=== PATIENT | female | born 2000 | race African-American/Black ===

== ENCOUNTER 2020-06-01 14:00 | Emergency (ER) | payer SELFPAY ==
[2020-06-01] MEDS ORDERED: ACETAMINOPHEN 325 MG TABLET PO ONE (14:22)
--- NOTE | 2020-06-01 14:24 | ER Document Report ---
ED Medical Screen (RME) - General Chief Complaint: Abdominal Pain Stated Complaint: ABDOMINAL PAIN Time Seen by Provider: 06/01/20 14:19 Mode of Arrival: Ambulatory Information source: Patient Notes: HPI; 20-year-old female presents to the emergency room complaining of intermittent worsening abdominal pain for the past month. States is gotten worse over the past week. Now radiates to her left flank area. Complains of dysuria, abdominal pressure, constantly feeling the need to urinate. States is gotten worse over the past week. Has tried [id number] Azo without relief. Denies any fevers, no nausea, no vomiting, no diarrhea. No COVID-19 exposure PE: Alert and oriented x3. Lungs: Clear to auscultation without rales, rhonchi, wheezes. Heart: Regular rate and rhythm without murmurs, rubs, gallops. Positive left CVA tenderness. I have greeted and performed a rapid initial assessment of this patient. A comprehensive ED assessment and evaluation of the patient, analysis of test results and completion of the medical decision making process will be conducted by additional ED providers. I have specifically instructed the patient or family members with the patient to immediately return to any nursing staff should anything change in the patient's condition or with their chief complaint. TRAVEL OUTSIDE OF THE [place] IN LAST 30 DAYS: No Physical Exam - Vital signs Vitals: Temp Pulse Resp BP Pulse Ox 98.0 F 72 16 119/77 100 06/01/20 14:06 06/01/20 14:06 06/01/20 14:06 06/01/20 14:06 06/01/20 14:06 Course - Vital Signs Vital signs: Temp Pulse Resp BP Pulse Ox 98.0 F 72 16 119/77 100 06/01/20 14:06 06/01/20 14:06 06/01/20 14:06 06/01/20 14:06 06/01/20 14:06
[2020-06-01 15:19] LABS: ABSOLUTE EOSINOPHILS # (AUTO) 0.1 10^3/uL (0.0-0.6); ABSOLUTE LYMPHOCYTES (AUTO) 1.3 10^3/uL (0.5-4.7); ABSOLUTE MONOCYTES (AUTO) 0.4 10^3/uL (0.1-1.4); ABSOLUTE NEUT (AUTO) 3.3 10^3/uL (1.7-8.2); BASOPHILS % (AUTO) 0.4 % (0-2); EOSINOPHILS % (AUTO) 1.7 % (0-6); HEMATOCRIT 38.9 % (36.0-47.0); HEMOGLOBIN 13.5 g/dL (12.0-15.5); LYMPHOCYTES % (AUTO) 26.1 % (13-45); MEAN CORPUSCULAR HEMOGLOBIN 30.8 pg (27.0-33.4); MEAN CORPUSCULAR HGB CONC 34.7 g/dL (32.0-36.0); MEAN CORPUSCULAR VOLUME 89 fl (80-97); MONOCYTES % (AUTO) 7.5 % (3-13); PLATELET COUNT 207 10^3/uL (150-450); RED BLOOD COUNT 4.39 10^6/uL (3.72-5.28); RED CELL DISTRIBUTION WIDTH 13.4 % (11.5-14.0); SEGMENTED NEUTROPHILS % (AUTO) 64.3 % (42-78); TOTAL CELLS COUNTED % (AUTO) 100 %; WHITE BLOOD COUNT 5.2 10^3/uL (4.0-10.5)
[2020-06-01 15:20] LABS: APPEARANCE,URINE SLIGHTLY-CLOUDY; BILIRUBIN,URINE NEGATIVE (NEGATIVE); COLOR,URINE YELLOW; GLUCOSE, URINE NEGATIVE (NEGATIVE); KETONES,URINE NEGATIVE (NEGATIVE); LEUKOCYTE ESTERASE,URINE SMALL (NEGATIVE); NITRITE,URINE NEGATIVE (NEGATIVE); PROTEIN,URINE NEGATIVE (NEGATIVE); URINE SPECIFIC GRAVITY 1.024; UROBILINOGEN,URINE NEGATIVE mg/dL (<2.0)
[2020-06-01 15:29] LABS: ALBUMIN 4.3 g/dL (3.5-5.0); ALKALINE PHOSPHATASE 82 U/L (38-126); ANION GAP 9 (5-19); ASPARTATE AMINO TRANSFERASE 26 U/L (14-36); BILIRUBIN,DIRECT 0.3 mg/dL (0.0-0.4); BILIRUBIN,TOTAL 0.7 mg/dL (0.2-1.3); BLOOD UREA NITROGEN 14 mg/dL (7-20); CALCIUM 9.9 mg/dL (8.4-10.2); CARBON DIOXIDE 27 mmol/L (22-30); CHLORIDE 104 mmol/L (98-107); GLUCOSE 86 mg/dL (75-110); POTASSIUM 4.2 mmol/L (3.6-5.0); TOTAL PROTEIN 8.1 g/dL (6.3-8.2)
--- NOTE | 2020-06-01 16:53 | ER Document Report ---
ED General <CHULA SYED - Last Filed: 06/01/20 18:14> - General Mode of Arrival: Ambulatory Information source: Patient TRAVEL OUTSIDE OF THE [place] IN LAST 30 DAYS: No - Related Data Home Medications: Keppra <JACKIE BOLANOS - Last Filed: 06/01/20 18:41> - General Chief Complaint: Urinary Problem Stated Complaint: ABDOMINAL PAIN Time Seen by Provider: 06/01/20 14:19 Notes: Patient is a 20-year-old -Turkmen female with 1 month of intermittent abdominal discomfort. Primarily patient is complaining of bladder spasms and frequency of urination. She does not have any dysuria. No fevers or shaking chills. No nausea or vomiting. (JACKIE BOLANOS) - Related Data Allergies/Adverse Reactions: pineapple Allergy (Verified 06/01/20 14:24) Past Medical History - General Information source: Patient Last Menstrual Period: 19 Sep - Social History Smoking Status: Never Smoker Chew tobacco use (# tins/day): No Frequency of alcohol use: None Family History: None <JACKIE BOLANOS - Last Filed: 06/01/20 18:41> Review of Systems <JACKIE BOLANOS - Last Filed: 06/01/20 18:41> - Review of Systems Notes: Constitutional: No fevers. No chills. EENT: No eye redness. No eye pain. No ear pain. No sore throat. Cardiovascular: No chest pain. No palpitations. Respiratory: No cough. No shortness of breath. No respiratory distress. Gastrointestinal: +abdominal pain. No nausea, vomiting, or diarrhea. Genitourinary: Positive urgency and frequency of urination. Musculoskeletal: Atraumatic. No swelling. No deformities. Skin: No rash or lesions. Lymphatic: No swollen lymph nodes. Neurologic: No headache. No syncope. Psychiatric: No suicidal or homicidal ideation. (JACKIE BOLANOS) Physical Exam <JACKIE BOLANOS - Last Filed: 06/01/20 18:41> - Vital signs Vitals: Temp Pulse Resp BP Pulse Ox 98.0 F 72 16 119/77 100 06/01/20 14:06 06/01/20 14:06 06/01/20 14:06 06/01/20 14:06 06/01/20 14:06 - Notes Notes: General: Well-developed, well-nourished. In no acute distress. Non-toxic appearing. Cardiac: Well-perfused. Regular rate and rhythm. No murmurs, rubs, or gallops. Pulmonary: No respiratory distress. No cyanosis. Bilateral lung fiels are clear to auscultation. Abdominal: Non-distended. Non-rigid. Bowels sounds are present in all four quadrants. No guarding or rebound. No CVA tenderness HEENT: Head is atraumatic. Conjunctivae not reddened. No tearing. PERRL. EOMI. Orbits atraumatic. No periorbital swelling or erythema. Oropharynx is without erythema, swelling, or exudates. Neck: Supple. No adenopathy. No meningismus. Dermatologic: Warm with good turgor. No rash. Atraumatic. Chest: Atraumatic. No chest wall tenderness to palpation. Musculoskeletal: Moves all extremities well. No range of motion deficits. no muscular or joint tenderness. No paraspinal muscle tenderness. no midline spinal tenderness or step-off. Genitourinary: Examination deferred Neurologic: No gross neurologic deficits. Psychiatric: Normal mood. (JACKIE BOLANOS) Course - Laboratory Result Diagrams: 06/01/20 14:30 06/01/20 14:30 <CHULA SYED - Last Filed: 06/01/20 18:14> - Laboratory Result Diagrams: 06/01/20 14:30 06/01/20 14:30 <JACKIE BOLANOS - Last Filed: 06/01/20 18:41> - Re-evaluation Re-evalutation: 06/01/20 18:14 Pelvic exam done with CHARLES Dimas at bedside. No cervical motion tenderness or adnexal tenderness noted. Moderate amount of gonsalez/white discharge noted. Discussed these findings with EDMAR Hernández. (CHULA SYED) 06/01/20 16:53 Blood work and urine really look unremarkable. Given the patient's long urinary symptoms, will recommend pelvic examination for possible STD. 06/01/20 18:35 Patient has some epithelials and bacteria in the wet mount. Will treat for bacterial vaginosis. Patient otherwise has urinary symptoms without an obvious UTI. She agrees to let us go ahead and treat her for gonorrhea and chlamydia empirically. I will start her additionally on Flagyl twice a day for a week to cover for BV. We will give her [employer]OR follow-up (JACKIE BOLANOS) - Vital Signs Vital signs: Temp Pulse Resp BP Pulse Ox 98.0 F 72 16 119/77 100 06/01/20 14:06 06/01/20 14:06 06/01/20 14:06 06/01/20 14:06 06/01/20 14:06 - Laboratory Laboratory results interpreted by me: 06/01/20 14:30 Ur Leukocyte Esterase SMALL H Discharge <CHULA SYED - Last Filed: 06/01/20 18:14> <JACKIE BOLANOS - Last Filed: 06/01/20 18:41> - Discharge Clinical Impression: Urinary frequency, Vaginal discharge, Bacterial vaginosis Abdominal pain Qualifiers: Abdominal location: unspecified location Qualified Code(s): R10.9 - Unspecified abdominal pain Condition: Good Disposition: HOME, SELF-CARE Instructions: Abdominal Pain ([facility]) Prescriptions: Metronidazole [Flagyl 500 mg Tablet] 500 mg PO BID #14 tablet Referrals: JEN BUTCHER MD [ACTIVE STAFF] - Follow up as needed
[2020-06-01 18:25] LABS: BACTERIA (WET MOUNT) 3+ BACTERIA SEEN; EPITHELIALS (WET MOUNT) 4+ EPITHELIALS SEEN; RBCS (WET MOUNT) NO RBCS SEEN; T.VAGINALIS (WET MOUNT) NO TRICHOMONAS SEEN; WBCS (WET MOUNT) FEW WBCS SEEN; YEAST (WET MOUNT) NO YEAST SEEN
[2020-06-01] MEDS ORDERED: CEFTRIAXONE INJ 250 MG VIAL IM ONE (18:34)
[2020-06-01] MEDS ORDERED: LIDOCAINE 1% INJ-PF (10 MG/ML) 30 ML SDV INJ ONE (18:34)
[2020-06-01] MEDS ORDERED: AZITHROMYCIN 250 MG TABLET PO ONE (18:34)
[2020-06-01 19:43] VITALS: BP 110/73
[2020-06-01 20:01] LABS: CHLAM PCR NOT DETECTED (NOT DETECT)
== END 2020-06-01 19:44 | disposition home or self-care (01) ==
LOC: ER 14:00
DX: N76.0 Acute vaginitis (principal); B96.89 Other specified bacterial agents as the cause of diseases classified elsewhere; R35.0 Frequency of micturition; R10.9 Unspecified abdominal pain
CPT/HCPCS: 36415; 80053; 81001; 84703; 85025; 87210; 87491; 87591; 99283

== ENCOUNTER 2020-06-19 16:02 | Emergency (ER) | payer SELFPAY ==
--- NOTE | 2020-06-19 18:58 | ER Document Report ---
ED Medical Screen (RME) - General Chief Complaint: Vaginal Pain Stated Complaint: VAGINAL CRAMPING Time Seen by Provider: 06/19/20 18:35 TRAVEL OUTSIDE OF THE [place] IN LAST 30 DAYS: No - HPI Notes: 06/19/20 18:43 20 year old female presents today with complaints of vaginal bleeding that started today. Patient states she took a test today and it was positive. Reports her last menstrual cycle was 04/28/2020. Patient was seen in the emergency room at the end of May, her urine at that time was negative. Patient has been sexually active without protection. Patient states she is unsure why she is vaginally bleeding, small amount, has not used any pads or tampons. Denies any fevers or chills. Denies any trauma. Denies any dysuria Unable to do pelvic exam in triage. Patient will be seen by a provider in the main emergency room I have greeted and performed a rapid initial assessment of this patient. A comprehensive ED assessment and evaluation of the patient, analysis of test results and completion of the medical decision making process will be conducted by additional ED providers. PHYSICAL EXAMINATION: GENERAL: Well-appearing, well-nourished and in no acute distress. CV: s1, s2 regular LUNGS: No respiratory distress 06/19/20 18:58 - Related Data Allergies/Adverse Reactions: pineapple Allergy (Verified 06/01/20 14:24) Past Medical History - Social History Frequency of alcohol use: None Drug Abuse: None Physical Exam - Vital signs Vitals: Temp Pulse Resp BP Pulse Ox 97.7 F 88 18 130/76 H 100 06/19/20 16:15 06/19/20 16:15 06/19/20 16:15 06/19/20 16:15 06/19/20 16:15 Course - Vital Signs Vital signs: Temp Pulse Resp BP Pulse Ox 97.7 F 88 18 130/76 H 100 06/19/20 16:15 06/19/20 16:15 06/19/20 16:15 06/19/20 16:15 06/19/20 16:15
[2020-06-19 19:33] LABS: AMORPHOUS SEDIMENT,URINE 1+ /HPF; APPEARANCE,URINE TURBID; BILIRUBIN,URINE NEGATIVE (NEGATIVE); COLOR,URINE YELLOW; GLUCOSE, URINE NEGATIVE (NEGATIVE); KETONES,URINE NEGATIVE (NEGATIVE); LEUKOCYTE ESTERASE,URINE TRACE (NEGATIVE); NITRITE,URINE POSITIVE (NEGATIVE); PROTEIN,URINE NEGATIVE (NEGATIVE); URINE SPECIFIC GRAVITY 1.023; UROBILINOGEN,URINE NEGATIVE mg/dL (<2.0)
[2020-06-19 19:37] LABS: ALBUMIN 4.7 g/dL (3.5-5.0); ALKALINE PHOSPHATASE 87 U/L (38-126); ANION GAP 10 (5-19); ASPARTATE AMINO TRANSFERASE 24 U/L (14-36); BILIRUBIN,TOTAL 0.5 mg/dL (0.2-1.3); BLOOD UREA NITROGEN 12 mg/dL (7-20); CALCIUM 10.2 mg/dL (8.4-10.2); CARBON DIOXIDE 24 mmol/L (22-30); CHLORIDE 102 mmol/L (98-107); GLUCOSE 90 mg/dL (75-110); POTASSIUM 4.3 mmol/L (3.6-5.0); TOTAL PROTEIN 8.9 g/dL (6.3-8.2)
[2020-06-19 19:53] LABS: ABSOLUTE EOSINOPHILS # (AUTO) 0.1 10^3/uL (0.0-0.6); ABSOLUTE LYMPHOCYTES (AUTO) 1.6 10^3/uL (0.5-4.7); ABSOLUTE MONOCYTES (AUTO) 0.4 10^3/uL (0.1-1.4); ABSOLUTE NEUT (AUTO) 4.5 10^3/uL (1.7-8.2); BASOPHILS % (AUTO) 0.3 % (0-2); EOSINOPHILS % (AUTO) 0.8 % (0-6); HEMATOCRIT 40.2 % (36.0-47.0); LYMPHOCYTES % (AUTO) 25.2 % (13-45); MEAN CORPUSCULAR HEMOGLOBIN 30.7 pg (27.0-33.4); MEAN CORPUSCULAR VOLUME 88 fl (80-97); MONOCYTES % (AUTO) 5.7 % (3-13); PLATELET COUNT 232 10^3/uL (150-450); RED BLOOD COUNT 4.57 10^6/uL (3.72-5.28); TOTAL CELLS COUNTED % (AUTO) 100 %; WHITE BLOOD COUNT 6.6 10^3/uL (4.0-10.5)
--- NOTE | 2020-06-19 21:24 | RADIOLOGY REPORT (SQ) ---
US TRANSVAGINAL HISTORY: 20 years Female vaginal bleeding. Positive test today. COMPARISON: No relevant studies are available for comparison. Technique: Transvaginal Imaging of the pelvis was performed. Color and spectral imaging was performed. Uterus: The uterus measures 7.5 x 5.5 x 3.5 cm. Cervix is closed and measures 2.2 cm. Endometrium is thickened. The endometrium measures 15 mm. No gestational sac is seen. Right Ovary: The ovary measures 3.1 x 4.1 x 2.9 cm and contains a complex mixed echogenicity cyst measuring 2.4 x 1.9 x 2.2 cm. This may represent a hemorrhagic cyst.. Normal color flow. Left Ovary: The ovary measures 2.8 x 1.9 x 1.9 cm and appears morphologically normal.. Vascular assessment was not performed. Other: Small amount of free fluid in the cul-de-sac IMPRESSION: 1. Thickened endometrium. No gestational sac is identified. 2. Complex right ovarian cyst. 3. Trace free fluid in the pelvis. 4. Viability is indeterminate.
[2020-06-20] MEDS ORDERED: CEPHALEXIN 500 MG CAPSULE PO ONE (00:20)
--- NOTE | 2020-06-20 00:25 | ER Document Report ---
ED General - General Chief Complaint: Vaginal Pain Stated Complaint: VAGINAL CRAMPING Time Seen by Provider: 06/19/20 18:35 TRAVEL OUTSIDE OF THE [place] IN LAST 30 DAYS: No - HPI Notes: Patient is a 20-year-old female who presents to the emergency department for evaluation. She has not had a menstrual period since April 28. This morning she took a test and it was positive. This was the first positive result she has had. She did state, however, with urinating she saw a small amount of blood on the toilet paper. She does not needed a tampon or a menstrual pad. She denies any pain. She has had some urinary frequency. No fevers or chills. No nausea or vomiting. She has been sexually active. She denies any vaginal discharge. She does not see an TUCKPOINTER CLEANER CAULKER regularly. - Related Data Allergies/Adverse Reactions: pineapple Allergy (Verified 06/01/20 14:24) Home Medications: Keppra Past Medical History - General Information source: POA - Power of [place] Supervisor - Social History Smoking Status: Never Smoker Frequency of alcohol use: None Drug Abuse: None Family History: None Neurological Medical History: Reports: Hx Seizures Review of Systems - Review of Systems Constitutional: No symptoms reported EENT: No symptoms reported Cardiovascular: No symptoms reported Respiratory: No symptoms reported Gastrointestinal: No symptoms reported Genitourinary: See HPI Female Genitourinary: See HPI Musculoskeletal: No symptoms reported Skin: No symptoms reported Neurological/Psychological: No symptoms reported -: Yes All other systems reviewed and negative Physical Exam - Vital signs Vitals: Temp Pulse Resp BP Pulse Ox 97.7 F 88 18 130/76 H 100 06/19/20 16:15 06/19/20 16:15 06/19/20 16:15 06/19/20 16:15 06/19/20 16:15 - Notes Notes: Vital signs reviewed, please refer to chart. Head is normocephalic, atraumatic. Pupils equal round, reactive to light. Neck is supple without meningismus. Heart is regular rate and rhythm. Lungs are clear to auscultation bilaterally. Abdomen is soft, nontender, normoactive bowel sounds throughout. Extremities without cyanosis, clubbing. Posterior calves are nontender. Peripheral pulses are equal. Skin is warm and dry. Patient is awake, alert, neurological exam is nonfocal. Course - Re-evaluation Re-evalutation: 06/20/20 00:22 Patient presents to the emergency department for evaluation. Her last menstrual period was nearly 2 months ago, but her quantitative beta-hCG today was only 160. Her urine is nitrite positive. She was given Keflex. I talked to the patient at length. Her ultrasound failed to show any abnormalities, but this seems to be very early. I explained her that she needs close [employer]UCKPOINTER CLEANER CAULKER follow-up. I also explained to the patient that the small amount of blood she saw was likely from UTI, but this needed to be followed up as well. She voiced understanding. I will give her referral onto our on-call TUCKPOINTER CLEANER CAULKER, Dr. Burger. She is told to abstain from drugs and alcohol, told to start taking vitamins. She is to return to the emergency department with worsening or new concerning symptoms of any sort. - Vital Signs Vital signs: Temp Pulse Resp BP Pulse Ox 98.4 F 74 20 123/73 100 06/19/20 20:10 06/19/20 20:10 06/19/20 20:10 06/19/20 20:10 06/19/20 20:10 - Laboratory Result Diagrams: 06/19/20 19:00 06/19/20 19:00 Laboratory results interpreted by me: 06/19/20 06/19/20 19:00 19:00 Sodium 136.1 L Total Protein 8.9 H Beta HCG, Quant 164.07 H Urine Nitrite POSITIVE H Ur Leukocyte Esterase TRACE H - Diagnostic Test Radiology reviewed: Reports reviewed Radiology results interpreted by me: 06/20/20 00:23 06/19/20 19:00 06/19/20 19:00 MCV 88 fl (80-97) 06/19/20 19:00 MCH 30.7 pg (27.0-33.4) 06/19/20 19:00 MCHC 35.0 g/dL (32.0-36.0) 06/19/20 19:00 RDW 13.0 % (11.5-14.0) 06/19/20 19:00 Seg Neutrophils % 68.0 % (42-78) 06/19/20 19:00 Chloride 102 mmol/L (98-107) 06/19/20 19:00 Carbon Dioxide 24 mmol/L (22-30) 06/19/20 19:00 Anion Gap 10 (5-19) 06/19/20 19:00 Est GFR ( Amer) > 60 (>60) 06/19/20 19:00 Glucose 90 mg/dL (75-110) 06/19/20 19:00 Calcium 10.2 mg/dL (8.4-10.2) 06/19/20 19:00 Total Bilirubin 0.5 mg/dL (0.2-1.3) 06/19/20 19:00 AST 24 U/L (14-36) 06/19/20 19:00 Alkaline Phosphatase 87 U/L (38-126) 06/19/20 19:00 Total Protein 8.9 g/dL (6.3-8.2) H 06/19/20 19:00 Albumin 4.7 g/dL (3.5-5.0) 06/19/20 19:00 Urine Color YELLOW 06/19/20 19:00 Urine Appearance TURBID 06/19/20 19:00 Urine pH 7.0 (5.0-9.0) 06/19/20 19:00 Ur Specific [place] 1.023 06/19/20 19:00 Urine Protein NEGATIVE mg/dL (NEGATIVE) 06/19/20 19:00 Urine Glucose (UA) NEGATIVE mg/dL (NEGATIVE) 06/19/20 19:00 Urine Ketones NEGATIVE mg/dL (NEGATIVE) 06/19/20 19:00 Urine Blood NEGATIVE (NEGATIVE) 06/19/20 19:00 Urine Nitrite POSITIVE (NEGATIVE) H 06/19/20 19:00 Ur Leukocyte Esterase TRACE (NEGATIVE) H 06/19/20 19:00 Urine WBC (Auto) 11 /HPF 06/19/20 19:00 Blood Type A POSITIVE 06/19/20 19:00 Antibody Screen NEGATIVE 06/19/20 19:00 06/20/20 00:23 Obstetrics Ultrasound 06/19/20 18:40 IMPRESSION: 1. Thickened endometrium. No gestational sac is identified. 2. Complex right ovarian cyst. 3. Trace free fluid in the pelvis. 4. Viability is indeterminate. Discharge - Discharge Clinical Impression: Early stage of Urinary tract infection Qualifiers: Urinary tract infection type: site unspecified Hematuria presence: with hematuria Qualified Code(s): N39.0 - Urinary tract infection, site not sp ecified; R31.9 - Hematuria, unspecified Condition: Stable Disposition: HOME, SELF-CARE Instructions: Cephalexin ([facility]), Urinary Tract Infection ([facility]), ([facility]) Additional Instructions: Your blood test shows you are very early in your . Ultrasound did not reveal a clear , but this is not surprising given the early stages. Please take all the antibiotic as prescribed. Follow-up with TUCKPOINTER CLEANER CAULKER in the next 1 to 2 weeks. If you develop worsening or new concerning symptoms of any sort, please return immediately to the emergency department for evaluation.
[2020-06-20 00:37] VITALS: BP 123/83
== END 2020-06-20 00:34 | disposition home or self-care (01) ==
LOC: ER 16:02
DX: O23.41 Unspecified infection of urinary tract in pregnancy, first trimester (principal); O34.81 Maternal care for other abnormalities of pelvic organs, first trimester; N83.201 Unspecified ovarian cyst, right side; O26.891 Other specified pregnancy related conditions, first trimester; R10.2 Pelvic and perineal pain; R56.9 Unspecified convulsions; Z79.899 Other long term (current) drug therapy; Z3A.01 Less than 8 weeks gestation of pregnancy; Z91.018 Allergy to other foods
CPT/HCPCS: 36415; 76817; 80053; 81001; 84702; 85025; 86850; 86900; 86901; 87086; 87088; 87186; 99284

== ENCOUNTER 2020-07-15 12:00 | Emergency (ER) | payer OTHER ==
[2020-07-15] MEDS ORDERED: METOCLOPRAMIDE HCL INJ/PF 10 MG/2 ML SDV IV ONE ×2 (12:24→13:29)
[2020-07-15] MEDS ORDERED: RINGERS SOLUTION,LACTATED 1,000 ML IV ONE (12:25)
--- NOTE | 2020-07-15 12:27 | ER Document Report ---
ED Medical Screen (RME) - General Chief Complaint: Nausea/Vomiting Stated Complaint: WEAKNESS Time Seen by Provider: 07/15/20 12:20 Mode of Arrival: Ambulatory Information source: Patient Notes: HPI; 20-year-old female 1 approximately 6 weeks presents to the emergency room complaining of generalized fatigue with nausea, and vomiting and dysuria for the past 3 days. States she is unable to tolerate anything p.o. Denies any vaginal discharge or bleeding. Denies any abdominal pain. Has had 1 OB visit approximately 2 weeks ago. Has a follow-up appointment July 31. Not currently taking any medications for her symptoms. She denies any fevers. No diarrhea. No COVID-19 exposure. PE: Alert and oriented x3. Lungs: Clear to auscultation without rales, rhonchi, wh eezes. Heart: Regular rate rhythm without murmurs, rubs, gallops. I have greeted and performed a rapid initial assessment of this patient. A comprehensive ED assessment and evaluation of the patient, analysis of test results and completion of the medical decision making process will be conducted by additional ED providers. I have specifically instructed the patient or family members with the patient to immediately return to any nursing staff should anything change in the patient's condition or with their chief complaint. TRAVEL OUTSIDE OF THE [place] IN LAST 30 DAYS: No - Related Data Allergies/Adverse Reactions: pineapple Allergy (Verified 07/15/20 12:19) Past Medical History Neurological Medical History: Reports: Hx Seizures Physical Exam - Vital signs Vitals: Temp Pulse Resp BP Pulse Ox 98.2 F 75 16 118/59 L 99 07/15/20 12:07/15/20 12:07/15/20 12:07/15/20 12:07/15/20 12:04 Course - Vital Signs Vital signs: Temp Pulse Resp BP Pulse Ox 98.2 F 75 16 118/59 L 99 07/15/20 12:07/15/20 12:07/15/20 12:07/15/20 12:07/15/20 12:04
[2020-07-15 12:53] LABS: ABSOLUTE EOSINOPHILS # (AUTO) 0.1 10^3/uL (0.0-0.6); ABSOLUTE LYMPHOCYTES (AUTO) 1.6 10^3/uL (0.5-4.7); ABSOLUTE MONOCYTES (AUTO) 0.4 10^3/uL (0.1-1.4); ABSOLUTE NEUT (AUTO) 5.6 10^3/uL (1.7-8.2); BASOPHILS % (AUTO) 0.3 % (0-2); EOSINOPHILS % (AUTO) 0.8 % (0-6); HEMATOCRIT 37.9 % (36.0-47.0); HEMOGLOBIN 13.1 g/dL (12.0-15.5); LYMPHOCYTES % (AUTO) 21.1 % (13-45); MEAN CORPUSCULAR HEMOGLOBIN 30.4 pg (27.0-33.4); MEAN CORPUSCULAR HGB CONC 34.6 g/dL (32.0-36.0); MEAN CORPUSCULAR VOLUME 88 fl (80-97); MONOCYTES % (AUTO) 5.7 % (3-13); PLATELET COUNT 187 10^3/uL (150-450); RED BLOOD COUNT 4.32 10^6/uL (3.72-5.28); RED CELL DISTRIBUTION WIDTH 13.1 % (11.5-14.0); SEGMENTED NEUTROPHILS % (AUTO) 72.1 % (42-78); TOTAL CELLS COUNTED % (AUTO) 100 %; WHITE BLOOD COUNT 7.8 10^3/uL (4.0-10.5)
[2020-07-15 13:02] LABS: APPEARANCE,URINE CLOUDY; BILIRUBIN,URINE NEGATIVE (NEGATIVE); COLOR,URINE YELLOW; GLUCOSE, URINE NEGATIVE (NEGATIVE); KETONES,URINE NEGATIVE (NEGATIVE); LEUKOCYTE ESTERASE,URINE LARGE (NEGATIVE); NITRITE,URINE NEGATIVE (NEGATIVE); PROTEIN,URINE 30 mg/dL (NEGATIVE); URINE SPECIFIC GRAVITY 1.027; UROBILINOGEN,URINE NEGATIVE mg/dL (<2.0)
[2020-07-15 13:11] LABS: ALBUMIN 4.2 g/dL (3.5-5.0); ALKALINE PHOSPHATASE 70 U/L (38-126); ANION GAP 7 (5-19); ASPARTATE AMINO TRANSFERASE 24 U/L (14-36); BILIRUBIN,TOTAL 0.4 mg/dL (0.2-1.3); BLOOD UREA NITROGEN 9 mg/dL (7-20); CARBON DIOXIDE 26 mmol/L (22-30); CHLORIDE 103 mmol/L (98-107); GLUCOSE 89 mg/dL (75-110); POTASSIUM 4.1 mmol/L (3.6-5.0); TOTAL PROTEIN 8.1 g/dL (6.3-8.2)
--- NOTE | 2020-07-15 14:59 | ER Document Report ---
ED General - General Chief Complaint: Nausea/Vomiting Stated Complaint: WEAKNESS Time Seen by Provider: 07/15/20 12:20 Mode of Arrival: Ambulatory TRAVEL OUTSIDE OF THE [place] IN LAST 30 DAYS: No - HPI Notes: Chief complaint: Nausea and vomiting in History of present illness: 20-year-old primigravida who is at about 6 weeks gestation taking no current medications now presenting with recurrent morning sickness over the past several days. Very nauseated this morning could not take anything in although she did not actually have any vomiting at home. She denies any abdominal pain, fever, chills, dysuria, vaginal bleeding or vaginal dischar ge. Previously healthy with no other serious illnesses. - Related Data Allergies/Adverse Reactions: pineapple Allergy (Verified 07/15/20 12:19) Past Medical History - General Information source: Patient - Social History Smoking Status: Former Smoker Frequency of alcohol use: None Drug Abuse: None Lives with: Spouse/Significant other Family History: None Neurological Medical History: Reports: Hx Seizures Review of Systems - Review of Systems Notes: Constitutional: Negative for fever. HENT: Negative for sore throat. Eyes: Negative for visual changes. Cardiovascular: Negative for chest pain. Respiratory: Negative for shortness of breath. Gastrointestinal: As per HPI. Genitourinary: Negative for dysuria. Musculoskeletal: Negative for back pain. Skin: Negative for rash. Neurological: Negative for headaches, weakness or numbness. 10 point ROS negative except as marked above and in HPI. Physical Exam - Vital signs Vitals: Temp Pulse Resp BP Pulse Ox 98.2 F 75 16 118/59 L 99 07/15/20 12:04 07/15/20 12:04 07/15/20 12:04 07/15/20 12:04 07/15/20 12:04 - Notes Notes: GENERAL: Slender female approximately stated age appearing in no acute distress. SKIN: Good turgor no rashes. HEAD: Normocephalic atraumatic. EYES: PERRLA. EOMI. Conjunctivae and sclerae clear. EARS: CANALS AND TMS CLEAR. NOSE: CLEAR. MOUTH: Moist mucosa. Good dentition. No stridor or edema. No drooling. NECK: Supple. No masses or thyromegaly. No adenopathy. Carotids 2+ without bruits. No JVD. BACK: Symmetrical without tenderness. CHEST: Respirations unlabored. Breath sounds clear and symmetrical. HEART: Regular rhythm. No murmur gallop or rub. ABDOMEN: Soft nontender without masses, organomegaly or rebound. Bowel sounds normally active. No bruits. GENITALIA: Deferred. EXTREMITIES: No edema. No calf tenderness. Cap refill less than 1.5 seconds. Dorsalis pedis and posterior tibial pulses 3+ and symmetrical. NEUROLOGICAL: GCS 15. Alert and oriented x3. Normal gait. Fluent speech. Cranial nerves II through XII intact. Sensorimotor and cerebellar normal. Normal tone. PSYCHIATRIC: Appropriate affect. Course - Re-evaluation Re-evalutation: 07/15/20 14:59 Patient appears to have related emesis. She received a liter of D5LR here. She did not have any ketonuria. She had positive leukocyte esterase and some WBCs in her urine but we note she has a large number of squamous cells in specimen. This will be cultured. She had no flank pain or fever. Patient is tolerating oral fluids at this time. I Ana send her out with Jim and have her follow-up with her AIR DIRECTOR provider. Findings, clinical impression and plan of treatment have been discussed with patient/family. Understanding of current findings and recommendations has been acknowledged by them and there is agreement regarding disposition and follow-up. - Vital Signs Vital signs: Temp Pulse Resp BP Pulse Ox 98.2 F 75 16 118/59 L 99 07/15/20 12:04 07/15/20 12:04 07/15/20 12:04 07/15/20 12:04 07/15/20 12:04 - Laboratory Result Diagrams: 07/15/20 12:37 07/15/20 12:37 Laboratory results interpreted by me: 07/15/20 07/15/20 12:37 12:37 Sodium 136.3 L Urine Protein 30 H Ur Leukocyte Esterase LARGE H Discharge - Discharge Clinical Impression: related emesis Condition: Stable Disposition: HOME, SELF-CARE Additional Instructions: Hyperemesis Gravidarum Hyperemesis gravidarum is the medical term for severe vomiting during p regnancy. We don't know exactly why it occurs, but it's a common problem. Dehydration can occur. This reduces blood flow to the placenta, decreasing the baby's nourishment. The baby will also become dehydrated. There can be harmful changes in blood sodium, potassium, or acid balance. Our goal is to correct, and prevent, dehydration. For severe cases, we give IV fluids. Antinausea medication will be prescribed. (Don't be concerned about " defects" -- the risk to you and your baby from the hyperemesis is the biggest problem. The antinausea medication is very safe at this stage of .) Call the doctor if you have vaginal bleeding, abdominal pain, severe lightheadedness or weakness, or other alarming symptoms. Take prescribed medication as instructed. Return here as needed for new or worsening symptoms. Follow-up with your AIR DIRECTOR provider within the next 1 week. Prescriptions: Doxylamine Succinate/Vit B6 [Jim Ambriz 10-10 mg Tablet] 1 each PO BID PRN 15 Days #30 tablet.dr SHI Reason:
[2020-07-15 15:55] VITALS: BP 92/54
== END 2020-07-15 16:01 | disposition home or self-care (01) ==
LOC: ER 12:00
DX: O21.9 Vomiting of pregnancy, unspecified (principal); R53.1 Weakness; Z3A.01 Less than 8 weeks gestation of pregnancy
CPT/HCPCS: 99284; 96361; 96374; 36415; 84702; 85025; 80053; 81001; J2765; J7120

== ENCOUNTER 2020-07-26 22:07 | Emergency (ER) | payer OTHER ==
--- NOTE | 2020-07-27 00:26 | ER Document Report ---
ED Medical Screen (RME) - General Chief Complaint: Pain With Urination Stated Complaint: PAIN WITH URINATION, SIDE PAIN Time Seen by Provider: 07/27/20 00:09 Notes: Patient is a G1, P0 20-year-old female presents emergency department with dysur ia. Patient is 8 weeks . Denies any vaginal bleeding. States that she has some slight discomfort to her right lower abdomen. Exam: Alert and oriented. I have greeted and performed a rapid initial assessment of this patient. A comprehensive ED assessment and evaluation of the patient, analysis of test results and completion of medical decision making process will be conducted by an additional ED providers. TRAVEL OUTSIDE OF THE [place] IN LAST 30 DAYS: No - Related Data Allergies/Adverse Reactions: pineapple Allergy (Verified 07/15/20 12:19) Past Medical History Neurological Medical History: Reports: Hx Seizures
[2020-07-27 01:22] LABS: APPEARANCE,URINE SLIGHTLY-CLOUDY; BILIRUBIN,URINE NEGATIVE (NEGATIVE); CALCIUM OXALATE CRYSTALS,URINE FEW /HPF; COLOR,URINE YELLOW; GLUCOSE, URINE NEGATIVE (NEGATIVE); KETONES,URINE TRACE mg/dL (NEGATIVE); PROTEIN,URINE NEGATIVE (NEGATIVE); URINE SPECIFIC GRAVITY 1.025; UROBILINOGEN,URINE NEGATIVE mg/dL (<2.0)
--- NOTE | 2020-07-27 02:22 | ER Document Report ---
ED GI/ - General Chief Complaint: Pain With Urination Stated Complaint: PAIN WITH URINATION, SIDE PAIN Time Seen by Provider: 07/27/20 00:09 [facility] [[facility]] - Follow up in 3-5 days Notes: Patient is a G1, P0 20-year-old female presents emergency department with dysuria. Patient is 8 weeks . Denies any vaginal bleeding. States that she has some slight discomfort to her right lower abdomen. TRAVEL OUTSIDE OF THE [place] IN LAST 30 DAYS: No - Related Data Allergies/Adverse Reactions: pineapple Allergy (Verified 07/15/20 12:19) Past Medical History - General Information source: Patient - Social History Smoking Status: Unknown if Ever Smoked Family History: None Neurological Medical History: Reports: Hx Seizures Review of Systems - Review of Systems Notes: REVIEW OF SYSTEMS: CONSTITUTIONAL : Denies recent illness. Denies recent unintentional weight loss. Denies fever, chills, or sweats. EENT: Denies eye, ear, throat, or mouth pain, discharge, or symptoms. Denies nasal or sinus congestion. CARDIOVASCULAR: Denies chest pain. RESPIRATORY: Denies shortness of breath, cough, congestion, difficulty breathing, or wheezing. GASTROINTESTINAL: Denies nausea, vomiting, and diarrhea. Denies constipation. See HPI. GENITOURINARY: See HPI. FEMALE GENITOURINARY: See HPI. MUSCULOSKELETAL: Denies neck and back pain. Denies joint pain or swelling. SKIN: Denies rash, itchiness, or lesions HEMATOLOGIC : Denies easy bruising or bleeding. LYMPHATIC: Denies swollen, painful, enlarged glands. NEUROLOGICAL: Denies no numbness or tingling denies weakness. Denies headache. Denies altered mental status. Denies alteration in speech. PSYCHIATRIC: Denies stress, anxiety, alteration in sleep patterns, or depression. All other systems reviewed and negative. Physical Exam - Vital signs Vitals: Temp Pulse Resp BP Pulse Ox 98.6 F 65 18 109/66 100 07/27/20 00:28 07/27/20 00:28 07/27/20 00:28 07/27/20 00:28 07/27/20 00:28 - Notes Notes: PHYSICAL EXAMINATION: GENERAL: Appears well, healthy, well-nourished, no acute distress. HEAD: Normocephalic, atraumatic. EYES: PERRL, conjunctiva normal, all extraocular movements intact, sclera nonicteric ENT: Moist mucous membranes. NECK: Supple, no noticeable swelling, redness, rash. Normal range of motion. LUNGS: Equal breath sounds bilaterally and clear to auscultation. No wheezes rales or rhonchi. CARDIOVASCULAR: S1-S2, regular rate, regular rhythm. Radial pulses 2+, normal. ABDOMEN: Normoactive bowel sounds. Soft, nontender, no guarding, no rebound tenderness, and no masses palpated. EXTREMITIES: Normal strength and range of motion, no pitting or edema. No cyanosis. NEUROLOGICAL: Moves all extremities upon command. Strength 5/5 in all extremities. PSYCH: Normal mood, normal affect. SKIN: Warm, dry. No rash, lesions, ulcerations noted. Normal skin turgor. TRAVOGRAPH OPERATOR: Small amount of white/gonsalez discharge noted. Course - Re-evaluation Re-evalutation: 07/27/20 02:21 Pelvic exam done with CHARLES Almanza at bedside. There was a small amount of gonsalez/white discharge noted. 07/27/20 02:56 Patient has 4+ epithelial and 3+ bacterial cells noted on her wet mount. She also has 1+ WBCs. No yeast or trichomonas noted. Urinalysis shows nitrates in her urine and trace leukocytes. She also has 21 WBCs. Urine culture has been sent. We will start the patient on Flagyl and Keflex. She will follow-up with COVER OPERATOR. Patient does not have right lower quadrant abdominal pain based off of exam to suggest appendicitis. Follow-up precautions were given. Verbal discharge instructions were given to the patient. They verbalized understanding. They are stable for discharge. - Vital Signs Vital signs: Temp Pulse Resp BP Pulse Ox 98.6 F 65 18 109/66 100 07/27/20 00:28 07/27/20 00:28 07/27/20 00:28 07/27/20 00:28 07/27/20 00:28 - Laboratory Results Laboratory Results Interpreted: 07/27/20 01:03 Urine Ketones TRACE H Urine Nitrite (Reflex) POSITIVE H Leukocyte Esterase Rfl TRACE H Urine Ascorbic Acid 40 H Critical Laboratory Results Reviewed: No Critical Results - Radiology Results Critical Radiology Results Reviewed: No Critical Results Discharge - Discharge Clinical Impression: Bacterial vaginosis in Urinary tract infection Qualifiers: Urinary tract infection type: acute cystitis Hematuria presence: without hemat uria Qualified Code(s): N30.00 - Acute cystitis without hematuria Condition: Stable Disposition: HOME, SELF-CARE Instructions: Urinary Tract Infection ([facility]) Additional Instructions: Your urine shows findings consistent with a urinary tract infection. Please take all the antibiotics as directed even if your symptoms have improved. Please follow-up with your primary care physician as needed. Return to emergency room if you develop fever >101F, persistent vomiting, become lethargic, have severe pain in your sides, or any other symptoms that are concerning to you. You have an overgrowth of natural vaginal bacteria, called bacterial vaginosis. You are being treated with an antibiotic called metronidazole. Do not drink alcohol while taking this medication. Complete all of the antibiotic even if your symptoms have resolved. Return for abdominal pain, vomiting, fever of greater than 101F, or any other symptoms that are worrisome to you. Please follow-up with your COVER OPERATOR or primary care doctor as needed. Prescriptions: Cephalexin [Keflex] 500 mg PO BID #14 capsule Metronidazole [Metrogel 0.75% Vaginal Gel] 5 applic VG QHS 5 Days #1 tube Referrals: [facility] [Provider Group] - Follow up in 3-5 days
[2020-07-27 02:28] LABS: T.VAGINALIS (WET MOUNT) NO TRICHOMONAS SEEN; YEAST (WET MOUNT) NO YEAST SEEN
[2020-07-27 02:29] LABS: BACTERIA (WET MOUNT) 3+ BACTERIA SEEN; EPITHELIALS (WET MOUNT) 4+ EPITHELIALS SEEN; WBCS (WET MOUNT) 1+ WBCS SEEN
[2020-07-27] MEDS ORDERED: CEPHALEXIN 500 MG CAPSULE PO ONE (02:55)
[2020-07-27 03:37] VITALS: BP 106/63
[2020-07-27 04:35] LABS: CHLAM PCR NOT DETECTED (NOT DETECT)
== END 2020-07-27 03:37 | disposition home or self-care (01) ==
LOC: ER 22:07
DX: O23.11 Infections of bladder in pregnancy, first trimester (principal); O23.591 Infection of other part of genital tract in pregnancy, first trimester; B96.89 Other specified bacterial agents as the cause of diseases classified elsewhere; Z3A.08 8 weeks gestation of pregnancy; Z91.018 Allergy to other foods
CPT/HCPCS: 36415; 81001; 84702; 87086; 87088; 87186; 87210; 87491; 87591; 99283